=== PATIENT | male | born 1960 | race Caucasian/White ===

== ENCOUNTER → 2018-01-09 | Outpatient (CLI) | payer SELFPAY ==
--- NOTE | 2018-01-09 14:58 | CT ---
CT Calcium Score Clinical information: 57-year-old male for coronary artery disease risk assessment. Comparison: None. ECG Gating: Prospective Scan range: Thoracic inlet to diaphragm. Findings: Examination quality: Good. Limitation: None. Total calcium score: 1948 Total volume score: 1540 mm3 Percentile: Greater than 90 % Artery scores Left main coronary artery: 130 Left anterior descending artery: 758 Left circumflex artery: 126 Right coronary artery: 934 Other findings: Coronary arteries: Significant atherosclerotic calcification of right main, LAD and circumflex. Cardiac chambers: Unremarkable. Cardiac valves: Unremarkable. Thoracic aorta: Unremarkable. Lungs: Unremarkable. Upper abdomen: Unremarkable. Impression: Total calcium score 1948. This corresponds to extensive atherosclerotic calcification seen on imaging , and correlates with a height likely head of future coronary event within the next 5 years. Reported By:
== END ==
LOC: RAD 13:17
PROVIDERS: ATTEND Nurse Practitioner Family
DX: Z13.6 Encounter for screening for cardiovascular disorders (principal)